=== PATIENT | female | born 1955 | race Caucasian/White ===

== ENCOUNTER → 2019-10-30 | Day surgery (SDC) | payer BC, OTHER ==
[~2019-10-30] VITALS: Ht 167.6 cm; Wt 80.1 kg
[~2019-10-30] MED LIST: ACETAMINOPHEN 325 MG TABLET PO PRN; CHLORHEXIDINE 15 ML UDC MM STA; CHLORHEXIDINE 15 ML UDC ONE; FENTANYL PF 100 MCG/2ML IV PRN; GLYCOPYRROLATE 0.2MG/1ML, 5ML ONE; KETOROLAC 30 MG/1 ML IV PRN; LACTATED RINGERS 1,000 ML IV ONE; LORazepam 2 MG/ML, 1ML IVPush PRN; NEOSTIGMINE 1 MG/ML, 10ML ONE; ONDANSETRON 2MG/ML, 2ML IV PRN; ONDANSETRON 2MG/ML, 2ML ONE; OXYcodone 5 MG/5 ML ORAL.SOL UDC PO PRN; PROPOFOL 10 MG/ML, 20ML ONE; ROCURONIUM 10 MG/ML,10ML ONE; SUCCINYLCHOLINE 20 MG/ML, 10ML ONE
[2019-10-30 10:39] VITALS: BP 151/95
== END | disposition home or self-care (01) ==
LOC: OR 10:13
PROVIDERS: ATTEND Internal Medicine
DX: K86.89 Other specified diseases of pancreas (principal); R16.0 Hepatomegaly, not elsewhere classified; K80.20 Calculus of gallbladder without cholecystitis without obstruction; K21.0 Gastro-esophageal reflux disease with esophagitis; Z88.5 Allergy status to narcotic agent
CPT/HCPCS: 43242; 88172; 88173; 88177; 88307; 88313; 88341; 88342; 93005; J0330; J2405; J2704; J2710; J7120